=== PATIENT | female | born 1950 | race Caucasian/White ===

== ENCOUNTER 2018-11-13 07:29 | Day surgery (SDC) | payer OTHER ==
[2018-11-10 12:57] VITALS: BMI 27.1
[2018-11-13 08:49] VITALS: TEMP 97.1
[2018-11-13 09:32] VITALS: BP 107/62; PULSE 58
--- NOTE | 2018-11-14 20:29 | PATH ---
Surgical Pathology Report Patient Name: MAYDA MELISSA [facility] Rec. #: [id number] /Age/Gender: 1950 (Age: 68) / F Account: [id number] Location: U-ENDOSCOPY Taken: 11/13/2018 Received: 11/13/2018 Reported: 11/14/2018 Physicians: Rosalino Hercules M.D. Specimen(s) Received A: DUODENUM, SECOND PORTION AND DUODENAL BULB B: ANTRUM C: GASTRIC ANTRAL POLYP D: RECTAL POLYP E: DISTAL TRANSVERSE COLON POLYP F: PROXIMAL TRASNVERSE COLON POLYP Clinical History Screening Postoperative diagnosis: Gastric polyp, colon polyps Final Diagnosis A. DUODENUM, SECOND PORTION AND DUODENAL BULB, BIOPSY: DUODENAL MUCOSA WITHOUT SIGNIFICANT PATHOLOGIC FINDINGS. B. STOMACH, ANTRUM, BIOPSY: GASTRIC ANTRAL MUCOSA WITH MODERATE TO SEVERE CHRONIC ACTIVE GASTRITIS. IMMUNOHISTOCHEMICAL STAIN FOR H. PYLORI IS POSITIVE (RARE). C. GASTRIC ANTRAL POLYP, BIOPSY: POLYPOID GASTRIC ANTRAL MUCOSA WITH MODERATE CHRONIC ACTIVE GASTRITIS. IMMUNOHISTOCHEMICAL STAIN FOR H. PYLORI IS NEGATIVE. D. RECTAL POLYPS, BIOPSY: HYPERPLASTIC POLYP(S). E. DISTAL TRANSVERSE COLON, POLYP, BIOPSY: TUBULAR ADENOMA. F. PROXIMAL TRANSVERSE COLON, POLYP, BIOPSY: TUBULAR ADENOMA. Electronically Signed Randee Flores M.D. Gross Description A. Received in formalin, labeled "biopsy second portion of duodenum and duodenal bulb" are 4 hill, irregular portions of soft tissue ranging from 0.2-0.5 cm. in greatest dimension. The specimens are submitted in toto in one cassette. B. Received in formalin, labeled "biopsy antrum" are 3 hill, irregular portions of soft tissue ranging from 0.2-0.5 cm. in greatest dimension. The specimens are submitted in toto in one cassette. C. Received in formalin, labeled "biopsy gastric antral polyp" is a hill, irregular portion of soft tissue measuring 0.7 cm. in greatest dimension. The specimen is submitted in toto in one cassette. D. Received in formalin, labeled "rectal polyps" are 6 hill, irregular portions of soft tissue ranging from 0.1-0.4 cm. in greatest dimension. The specimens are submitted in toto in one cassette. E. Received in formalin, labeled "biopsy distal transverse colon polyp" is a hill, irregular portion of soft tissue measuring 0.4 cm. in greatest dimension. The specimen is submitted in toto in one cassette. F. Received in formalin, labeled "biopsy proximal transverse colon polyp" is a hill, irregular portion of soft tissue measuring 0.4 cm. in greatest dimension. The specimen is submitted in toto in one cassette. 11/13/201811/13/2018
== END 2018-11-13 09:35 | disposition home or self-care (01) ==
LOC: JASU-ENDO 07:29
PROVIDERS: ATTEND Internal Medicine Gastroenterology
PROC: 0DBL8ZX Excision of Transverse Colon, Via Natural or Artificial Opening Endoscopic, Diagnostic (ICD-10-PCS; 2018-11-13)
PROC: 0DB68ZX Excision of Stomach, Via Natural or Artificial Opening Endoscopic, Diagnostic (ICD-10-PCS; 2018-11-13)
PROC: 0DBP8ZX Excision of Rectum, Via Natural or Artificial Opening Endoscopic, Diagnostic (ICD-10-PCS; principal; 2018-11-13 08:00)
DX: Z12.11 Encounter for screening for malignant neoplasm of colon (principal); K62.1 Rectal polyp; K64.8 Other hemorrhoids; D12.3 Benign neoplasm of transverse colon; K31.7 Polyp of stomach and duodenum; K29.50 Unspecified chronic gastritis without bleeding
CPT/HCPCS: 88305-TC; 88342-TC